=== PATIENT | male | born 1965 | race Caucasian/White ===

== ENCOUNTER 2022-10-04 02:03 | Emergency (ER) | payer OTHER ==
[~2022-10-04] VITALS: Ht 185.4 cm; Wt 127.0 kg
--- OUTSIDE RECORDS SUMMARY | 2022-10-04 03:54 | XMS ---
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: Foot \T\ Ankle Surgery Current PHONE: [phone] MIGUELANGEL ZHU Internal Medicine Current PHONE: [phone] DELFIN MARTINEZ Nurse Practitioner: Family Current PHONE: Unknown DIA EPPERSON Internal Medicine Current PHONE: [phone] BHARTI YUNG Nurse Practitioner: Family Current PHONE: [phone] BELEN CASAREZ Nurse Practitioner Current ANGELA PHONE: [phone] CORETTA [facility] Current PHONE: Unknown ZUHAIR TAYLOR Family Medicine Current PHONE: [phone] SENAIT COREY Nurse Practitioner: Family Current PHONE: Unknown Rhea has no Care Guidelines for this patient. Eli VISIT COUNT (12 MO.) [address] [place] [address] MICHAEL Muhammad TOTAL 7 NOTE: Visits indicate total known visits. ED/C VISIT TRACKING (12 MO.) 10/04/2022 02:03 [facility] [place] TYPE: Emergency COMPLAINT: - [facility] DIAGNOSES: - Low back pain, unspecified - Failure to Thrive - Cutaneous abscess, unspecified - Weakness - Osteomyelitis, unspecified - Essential (primary) hypertension - Back Pain [facility] DIAGNOSES: - Osteomyelitis, unspecified - Weakness - Psoas muscle abscess 07/22/2022 11:56 [facility] [place] TYPE: Emergency DIAGNOSES: - Sepsis, unspecified organism - FEVER WEAKNESS CHILLS 07/02/2022 14:50 [facility] [place] TYPE: Emergency COMPLAINT: - F/U CALL BACK DIAGNOSES: - F/U CALL BACK 07/01/2022 13:27 [facility] [place] TYPE: Emergency DIAGNOSES: - Tubulo-interstitial nephritis, not specified as acute or chronic - Hypo-osmolality and hyponatremia - Unspecified abdominal pain - BACK PAIN RADIATES UP TO SHOULDERS 06/27/2022 08:41 [facility] [place] TYPE: Emergency DIAGNOSES: - Urinary tract infection, site not specified - POSS KIDNEY STONE - Hematuria, unspecified INPATIENT VISIT TRACKING (12 MO.) 08/28/2022 19:32 [facility] Judy Patrick [place] TYPE: Internal Medicine DIAGNOSES: - Extended spectrum beta lactamase (ESBL) resistance - Dorsalgia, unspecified - Discitis, unspecified, site unspecified - Discitis, unspecified, thoracolumbar region - Intraspinal abscess and granuloma - Essential (primary) hypertension - Osteomyelitis, unspecified - Methicillin susceptible Staphylococcus aureus infection, unspecified site - Other bacterial infections of unspecified site - Low back pain, unspecified - Psoas muscle abscess - Osteomyelitis of vertebra, site unspecified - Cutaneous abscess, unspecified - Body mass index [BMI] 38.0-38.9, adult - Weakness 08/13/2022 12:57 [facility] TYPE: Internal Medicine DIAGNOSES: - Other bacterial infections of unspecified site - Osteomyelitis, unspecified - Discitis, unspecified, site unspecified - Intraspinal abscess and granuloma - Extended spectrum beta lactamase (ESBL) resistance - Psoas muscle abscess - Infective myositis, right shoulder - Osteomyelitis of vertebra, site unspecified - Pyogenic arthritis, unspecified - Type 2 diabetes mellitus with hyperglycemia - Psoas muscle abscess 07/22/2022 11:56 [facility] [place] TYPE: Medical Surgical DIAGNOSES: - Sepsis, unspecified organism 07/02/2022 14:50 [facility] [place] TYPE: Medical Surgical DIAGNOSES: - Bacteremia - F/U CALL BACK - Tubulo-interstitial nephritis, 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
[2022-10-04] MEDS ORDERED: TOUJEO SOL300 UNIT/1 SUB-Q (04:41)
[2022-10-04] MEDS ORDERED: ADULT ASPIRIN R81 MG PO (04:44)
[2022-10-04] MEDS ORDERED: ATORVASTATIN CA80 MG PO (04:45)
[2022-10-04] MEDS ORDERED: FARXIGA10 MG PO (05:09)
[2022-10-04] MEDS ORDERED: INDAPAMIDE1.25 MG PO (05:09)
[2022-10-04] MEDS ORDERED: CHOLECALCIFEROL1 GM MISC (05:09)
[2022-10-04] MEDS ORDERED: LEVOFLOXACIN500 MG PO (05:10)
[2022-10-04] MEDS ORDERED: LEVOFLOXAC750 MG/150 IV (05:12)
[2022-10-04] MEDS ORDERED: LIDOCAINE1 EACH TD (05:13)
[2022-10-04] MEDS ORDERED: LISINOPRIL40 MG PO (05:13)
[2022-10-04] MEDS ORDERED: METOPROLOL SUC100 MG PO (05:14)
[2022-10-04] MEDS ORDERED: NIFEDIPINE ER30 M1 PO (05:15)
[2022-10-04] MEDS ORDERED: NEXIUM 24HR20 M2 PO (05:15)
[2022-10-04] MEDS ORDERED: ELIQUIS5 MG PO (05:19)
[2022-10-04] MEDS ORDERED: FAMOTIDINE20 MG PO (05:20)
[2022-10-04] MEDS ORDERED: METFORMIN HCL500 M1 PO (05:20)
[2022-10-04] MEDS ORDERED: MEROPENEM1 GM IV (05:21)
[2022-10-04] MEDS ORDERED: CYCLOBENZAPRINE10 MG PO (05:22)
[2022-10-04] MEDS ORDERED: OXYCODONE HCL5 MG PO (05:23)
[2022-10-04] MEDS ORDERED: NEURONTIN300 MG PO (05:23)
[2022-10-04] MEDS ORDERED: BACLOFEN5 MG PO (05:24)
[2022-10-04] MEDS ORDERED: HYDROCODON-ACE1 EAC8 PO (05:24)
[2022-10-04] MEDS ORDERED: SULFAMETHOXAZO1 EAC1 PO (05:24)
[2022-10-04] MEDS ORDERED: OZEMPIC0.25 MG/0. SQ (05:24)
[2022-10-04] MEDS ORDERED: NIFEDIPINE ER30 MG PO (05:25)
[2022-10-04] MEDS ORDERED: CEFDINIR300 MG PO (05:25)
== END 2022-10-04 04:25 | disposition home or self-care (01) ==
LOC: ED 02:03
DX: S00.03XA Contusion of scalp, initial encounter (principal); X58.XXXA Exposure to other specified factors, initial encounter; E11.9 Type 2 diabetes mellitus without complications; I48.91 Unspecified atrial fibrillation; I10 Essential (primary) hypertension; Z88.7 Allergy status to serum and vaccine
CPT/HCPCS: 36415; 70450; 80053; 85025; 85610; 99284-25